=== PATIENT | female | born 1980 | race Asian ===

== ENCOUNTER 2022-03-29 00:12 | Emergency (ER) | payer OTHER ==
[~2022-03-29] VITALS: Ht 162.6 cm; Wt 72.6 kg
[2022-03-29 00:12] VITALS: BP 116/74
[2022-03-29] MEDS ORDERED: CEPH500T PO (16:01)
== END 2022-03-29 05:50 | disposition left against medical advice (07) ==
LOC: ER 00:12
DX: O46.91 Antepartum hemorrhage, unspecified, first trimester (principal); O26.891 Other specified pregnancy related conditions, first trimester; R10.9 Unspecified abdominal pain; R30.0 Dysuria; Z3A.01 Less than 8 weeks gestation of pregnancy
CPT/HCPCS: 76801; 76817

== ENCOUNTER 2022-03-29 13:07 | Emergency (ER) | payer OTHER, MEDICAID ==
[~2022-03-29] VITALS: Ht 162.6 cm; Wt 72.6 kg
[2022-03-29 15:00] VITALS: BP 127/79
[2022-03-29 15:10] LABS: Urine Bacteria NONE SEEN /hpf (None Seen); Urine Blood 1+ /uL (Negative); Urine Specific Gravity 1.005 (1.001-1.035); Urine WBC 22 /hpf (0 - 5)
[2022-03-29] MEDS ORDERED: CEPH500T PO (16:01)
== END 2022-03-29 16:17 | disposition home or self-care (01) ==
LOC: ER 13:07
DX: O23.41 Unspecified infection of urinary tract in pregnancy, first trimester (principal); Z3A.01 Less than 8 weeks gestation of pregnancy
CPT/HCPCS: 81001